=== PATIENT | female | born 1955 ===

== ENCOUNTER 2017-03-01 02:21 | Observation (INO) | payer OTHER ==
[2017-03-01 02:22] VITALS: BMI 24.7
[2017-03-01 03:38] LABS: BASO % 0.3 % (0.0-2.0); EOS # 0.1 K/uL (0.0-0.7); EOS % 1.8 % (0.0-4.0); HEMATOCRIT 39.7 % (34.0-47.0); LYMPH # 2.2 K/uL (1.0-4.3); LYMPH % 37.3 % (20.0-40.0); MEAN CELL VOLUME 90.1 fL (81.0-99.0); MEAN CORPUSCULAR HEMOGLOBIN 29.9 pg (27.0-31.0); MEAN CORPUSCULAR HGB CONC 33.2 g/dL (33.0-37.0); MEAN PLATELET VOLUME 9.8 fL (7.2-11.7); MONO # 0.4 K/uL (0.0-0.8); NRBC % 0.1 % (0.0-2.0); RED CELL DISTRIBUTION WIDTH 13.6 % (11.5-14.5)
[2017-03-01 03:43] LABS: INR 1.1
[2017-03-01 03:45] LABS: CHLORIDE 100 mmol/L (98-107); SODIUM 140 mmol/L (132-148)
[2017-03-01 03:46] LABS: POTASSIUM 4.1 mmol/L (3.6-5.2)
[2017-03-01 03:48] LABS: ALB/GLOB RATIO 1.3 (1.0-2.1); ALKALINE PHOSPHATASE 84 U/L (38-126); ALT/SGPT 36 U/L (9-52); AST/SGOT 26 U/L (14-36); BILIRUBIN,TOTAL 0.1 mg/dL (0.2-1.3); BLOOD UREA NITROGEN 12 mg/dL (7-17); CARBON DIOXIDE 28 mmol/L (22-30); GFR AFRICAN-AMERICAN > 60; GLUCOSE,RANDOM 110 mg/dL (65-105); TOTAL PROTEIN 7.1 g/dL (6.3-8.3)
[2017-03-01 03:49] LABS: CALCIUM 8.4 mg/dl (8.6-10.4)
--- NOTE | 2017-03-01 04:58 | C.PDOC ---
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 Pt also notes tremors/ jerkiness of the left arm. Pt denies weakness of the extremities or numbness, dizziness, chest pain, SOB, visual complaints, nausea, vomiting, diarrhea, fever , chills, or any other complaints. Now symptoms have resulted.Pt is s/p brain surgery for 2 years. Time Seen by Provider: 03/01/17 02:51 Chief Complaint (Nursing): Weakness/Neurological Deficit History Per: Patient History/Exam Limitations: no limitations Onset/Duration Of Symptoms: Hrs Current Symptoms Are (Timing): Still Present Severity: Mild Past Medical History Reviewed: Historical Data, Nursing Documentation, Vital Signs Vital Signs: Last Vital Signs Temp 97.6 F 03/01/17 02:30 Pulse 57 L 03/01/17 06:18 Resp 17 03/01/17 06:18 BP 150/71 03/01/17 06:18 Pulse Ox 97 03/01/17 06:18 - Medical History PMH: HTN, Hypercholesterolemia, Seizures Denies: Chronic Kidney Disease - [facility] Procedures CRANIAL OSTEOPLASTY NEC (03/31/14) NON-INVASIVE MECHANICAL VENTILATION (03/31/14) OTHER BRAIN INCISION (03/31/14) OTHER CRANIOTOMY (03/31/14) PERCUTANEOUS [ENDOSCOPIC] GASTROSTOMY [PEG] (03/31/14) VACCINATION NEC (03/31/14) Family History: States: Unknown Family Hx - Social History Hx Tobacco Use: No Hx Alcohol Use: No Hx Substance Use: No - Immunization History Hx Tetanus Toxoid Vaccination: Yes Hx Influenza Vaccination: Yes Hx Pneumococcal Vaccination: Yes Review Of Systems Constitutional: Positive for: Other (Tingling sensation and numbness of Left facial area). Negative for: Fever, Chills Eyes: Negative for: Vision Change Cardiovascular: Negative for: Chest Pain Respiratory: Negative for: Shortness of Breath Gastrointestinal: Negative for: Nausea, Vomiting, Diarrhea Musculoskeletal: Positive for: Arm Pain (Tremors/jerkiness of left arm) Neurological: Negative for: Weakness (extremities), Numbness (extremities), Dizziness Physical Exam - Physical Exam Appears: Non-toxic, No Acute Distress Skin: Warm, Dry Head: Atraumatic, Normacephalic, No Other (No sign of facial paralysis) Eye(s): bilateral: Normal Inspection, PERRL, EOMI, Other (Able to close eys fully) Oral Mucosa: Moist Neck: Normal Chest: Symmetrical Cardiovascular: Rhythm Regular Respiratory: Normal Breath Sounds, No Rales, No Rhonchi, No Wheezing Gastrointestinal/Abdominal: Normal Exam, Soft, No Tenderness Back: Normal Inspection Extremity: Other (Good strength of the upper and lower extremity) Neurological/Psych: Oriented x3 (Normal for baseline as per son), Normal Speech , Normal Cognition, Normal Cranial Nerves (intact) Gait: Steady ED Course And Treatment - Laboratory Results Result Diagrams: 03/01/17 03:33 03/01/17 03:33 O2 Sat by Pulse Oximetry: 92 (Room air) Pulse Ox Interpretation: Normal - CT Scan/US CT head w/o contrast Other Rad Studies (CT/US): Interpreted By Me, Read By Radiologist CT/US Interpretation: EXAM: CT Head Without Intravenous Contrast. CLINICAL HISTORY: 61 years old, female; Pain; Headache and other: Facial twitching, tremors , S/P brain SX; Prior. surgery. TECHNIQUE: Axial computed tomography images of the head/brain without intravenous contrast. This CT exam. was performed using one or more of the following dose reduction techniques: automated exposure. control, adjustment of the mA and/or kV according to patient size, and/or use of iterative. reconstruction technique. 3D reconstructed images were created and reviewed. COMPARISON: Correlate with report of MRI of 05/01/2016 CT scan report 04/29/16. Images not available for comparison. FINDINGS: Brain: Diffuse encephalomalacia left temporal and parietal lobes. Very tiny focus of hyperintensity. with Hounsfield units of 65 in left parietal region. This appears to be contiguous with an MCA vessel. branches, and may represent intraluminal thrombus, or slow flow. Ventricles: No hydrocephalus. Bones/joints: Left parietal craniectomy defect. Postsurgical change. No acute fracture. Soft tissues: Unremarkable. Sinuses: Unremarkable as visualized. No acute sinusitis. Mastoid air cells: Unremarkable as visualized. No mastoid effusion. IMPRESSION: Status post left middle cranial fossa tumor resection with postoperative encephalomalacia involving. left temporal and parietal lobes. Tiny focus of hyperdensity measuring 3 mm left parietal lobe without. evidence of surrounding edema. May represent old thrombus within main left MCA territory branch or. slow flow within a vessel or other vascular anomaly. A request has been made for prior CT scan of the brain of 04/29/2016 port direct comparison. An addendum will be issued once those images are. obtained. Progress Note: CT head was done on the pt. Reassess and disposition. - Physician Consult Information Time Consulting Physician Contacted: 04:50 Physician Contacted: Jermaine Vidal Outcome Of Conversation: Will admit to his service for observatin Disposition - Disposition Disposition: HOSPITALIZED Disposition Time: 05:45 Condition: STABLE - Clinical Impression Clinical Impression: Weakness of limb, Left facial numbness - Scribe Statement The provider has reviewed the documentation as recorded by the Scribe Chetan montes All medical record entries made by the Scribe were at my direction and personally dictated by me. I have reviewed the chart and agree that the record accurately reflects my personal performance of the history, physical exam, medical decision making, and the department course for this patient. I have also personally directed, reviewed, and agree with the discharge instructions and disposition.
--- NOTE | 2017-03-01 05:40 | CP.PCM.HP ---
<Zhanna Segovia - Last Filed: 03/01/17 07:30> History of Present Illness - History of Present Illness History of Present Illness: CC: "my mouth was twisting to the left" 61 year old female with Hx of HTN, HLD, brain tumor s/p resection presents to the ED with son after face began to twist to the left. She has residual right sided weakness, expressive aphasia, and slurred speech since tumor resection. Patient was sleeping alone at home when she woke up feeling anxious and short of breath and felt "something was wrong". Her left arm was shaking and she felt as though her mouth was twisting. She called her son home from work who brought her in to the hospital. Patient and son reports the twisting of the left face has happened before. Patient and son think symptoms occur usually when patient is hot, and resolve when air conditioning is turned on. She was evaluated in the hospital when it began to happen for the first time shortly after her surgery. Son reports "they thought she was having a stroke, but then it started happening almost every week". She was placed on Keppra at that time. Last time she had an episode like this was 1.5 years ago with no issues since. Patient is very independent at home (she cooks, eats, ambulates without difficulty). Patient also reports numbness and tingling of left arm 3 days ago that persisted for 2 days, but has resolved. Patient admits she never had symptoms when she goes to [facility] (where she was recently) and sometimes stops her BP med. She denies chest pain, SOB, fevers, chills, nausea, vomiting, headaches, palpitations, dysruia, cough, changes in vision, trouble walking. PMHx of HTN, HLD, hx of brain tumor (s/p resection in 2013) with right sided residual. SurgHx: brain tumor resection in 2014 and a filter placed 20 years ago for "thick blood". NKDA Home Meds: Keppra 500mg PO bid, Dilantin 100mg PO TID, Lisinopril 20mg PO daily , ASA 81mg po daily, Pravastatin 40mg po qhs, Vit D2, Vit B12 daily. FHX: mother had heart attack Social Hx: denies tobacco, alcohol, illicit drugs. PMD: Dr. Zoey Present on Admission - Present on Admission Any Indicators Present on Admission: No Review of Systems - Constitutional Constitutional: absent: Chills, Fatigue, Fever - EENT Eyes: absent: Blurred Vision, Change in Vision - Cardiovascular Cardiovascular: absent: Chest Pain, Dyspnea - Respiratory Respiratory: absent: Cough, Dyspnea - Gastrointestinal Gastrointestinal: absent: Abdominal Pain, Constipation, Diarrhea, Nausea, Vomiting - Genitourinary Genitourinary: absent: Difficulty Urinating, Dysuria - Musculoskeletal Musculoskeletal: Numbness, Tingling. absent: Back Pain - Neurological Neurological: Numbness, Tingling, Weakness (at baseline ). absent: Confusion, Convulsions, Dizziness, Headaches, Syncope - Endocrine Endocrine: absent: Fatigue, Palpitations Past Patient History - Infectious Disease Hx of Infectious Diseases: None - Past Medical History & Family History Past Medical History?: Yes - Past Social History Smoking Status: Never Smoked - CARDIAC Hx Hypercholesterolemia: Yes Hx Hypertension: Yes - NEUROLOGICAL Hx Seizures: Yes - HEENT Other/Comment: wears glasses - RENAL Hx Chronic Kidney Disease: No - ENDOCRINE/METABOLIC Hx Endocrine Disorders: No - HEMATOLOGICAL/ONCOLOGICAL Hx Blood Disorders: No - INTEGUMENTARY Hx Dermatological Problems: No - MUSCULOSKELETAL/RHEUMATOLOGICAL Hx Falls: No - GASTROINTESTINAL Hx Nausea: Yes Hx Vomiting: Yes - GENITOURINARY/GYNECOLOGICAL Hx Genitourinary Disorders: No - PSYCHIATRIC Hx Substance Use: No - SURGICAL HISTORY Other/Comment: [place] Filter,Brain tumor surgery - ANESTHESIA Hx Anesthesia: Yes Hx Anesthesia Reactions: No Meds Allergies/Adverse Reactions: Allergies Allergy/AdvReac Type Severity Reaction Status Date / Time No Known Allergies Allergy Verified 03/01/17 02:38 Physical Exam - Constitutional Appears: No Acute Distress - Head Exam Head Exam: NORMAL INSPECTION, NORMOCEPHALIC - Eye Exam Eye Exam: EOMI, Normal appearance, PERRL Pupil Exam: NORMAL ACCOMODATION - ENT Exam ENT Exam: Mucous Membranes Moist - Neck Exam Neck exam: Positive for: Full Rom, Normal Inspection - Respiratory Exam Respiratory Exam: Clear to Auscultation Bilateral, NORMAL BREATHING PATTERN. absent: Rales, Rhonchi, Wheezes - Cardiovascular Exam Cardiovascular Exam: REGULAR RHYTHM, +S1, +S2 - GI/Abdominal Exam GI & Abdominal Exam: Normal Bowel Sounds, Soft. absent: Distended, Tenderness - Extremities Exam Extremities exam: Positive for: full ROM, normal inspection. Negative for: pedal edema - Back Exam Back exam: NORMAL INSPECTION - Neurological Exam Neurological exam: Alert, CN II-XII Intact, Motor Sensory Deficit, Oriented x3 - Expanded Neurological Exam Expanded Neurological exam: Expressive Aphasia, Tremor Patient oriented to: person, place, time Speech: Expressive Aphasia, Slurred Speech Cranial nerves: EOM's Intact: Normal, Facial Palsey w/Forehead Movement: Normal , Facial Palsey w/o Forehead Movement: Normal, Facial Sensation: Normal, Nystagmus: Abnormal Left, Abnormal Right, Tongue Deviation: Normal Ataxia: No Cerebellar Function: Finger to Nose: Abnormal Right, Heel to Guerrero: Normal Upper motor neuron: Babinski Sign: Abnormal Right Neuro motor strength exam: Left Upper Extremity: 5, Right Upper Extremity: 4, Left Lower Extremity: 5, Right Lower Extremity: 4 Coma Scale Eye Opening: SPONTANEOUS Coma Scale Motor Response: OBEYS COMMANDS Coma Scale Verbal: Oriented Coma Scale Total: 15 - Psychiatric Exam Psychiatric exam: Normal Affect, Normal Mood - Skin Skin Exam: Dry, Normal Color, Warm Results - Vital Signs Recent Vital Signs: Last Vital Signs Temp 97.6 F 03/01/17 02:30 Pulse 60 03/01/17 04:13 Resp 16 03/01/17 04:13 BP 142/72 03/01/17 03:53 Pulse Ox 92 L 03/01/17 05:15 - Labs Result Diagrams: 03/01/17 03:33 03/01/17 03:33 Labs: Laboratory Results - last 24 hr 03/01/17 03:33 WBC 6.0 RBC 4.40 Hgb 13.2 Hct 39.7 MCV 90.1 MCH 29.9 MCHC 33.2 RDW 13.6 Plt Count 156 MPV 9.8 Neut % (Auto) 54.6 Lymph % (Auto) 37.3 [place] % (Auto) 6.0 Eos % (Auto) 1.8 Baso % (Auto) 0.3 Neut # 3.3 Lymph # 2.2 [place] # 0.4 Eos # 0.1 Baso # 0.0 PT 12.7 H INR 1.1 APTT 30 Sodium 140 Potassium 4.1 Chloride 100 Carbon Dioxide 28 Anion Gap 17 BUN 12 Creatinine 0.6 L Est GFR ( Amer) > 60 Est GFR (Non-Af Amer) > 60 Random Glucose 110 H Calcium 8.4 L Total Bilirubin 0.1 L AST 26 ALT 36 Alkaline Phosphatase 84 Total Protein 7.1 Albumin 4.1 Globulin 3.1 Albumin/Globulin Ratio 1.3 Assessment & Plan (1) Tremor of left hand Assessment and Plan: Resolved. Patient with hx of seizures (not tonic-clonic) on Dilantin and Keppra. Neuro consult placed- Dr. Castillo- help appreciated. f/u EEG f/u EKG Electrolytes within normal limits. f/u Vit B12, TSH Continue home meds: Keppra 500 mg PO BID Dilantin 100 mg PO TID Head CT: Status post left middle cranial fossa tumor resection with postoperative encephalomalacia involving. left temporal and parietal lobes. Tiny focus of hyperdensity measuring 3 mm left parietal lobe without evidence of surrounding edema. May represent old thrombus within main left MCA territory branch or. slow flow within a vessel or other vascular anomaly. A request has been made for prior CT scan of the brain of 04/29/2016 port direct comparison. f/u official head CT read. Status: Acute (2) Facial asymmetry Assessment and Plan: Resolved. Patient with hx of brain tumor resection and residual expressive aphasia, RIGHT sided weakness and slurred speech. Neuro consult placed- Dr. Castillo- help appreciated. f/u EEG f/u EKG f/u Vit B12, TSH Continue home meds: ASA 81 mg PO daily Crestor 5 mg PO HS (Pravastatin 40 mg PO daily not on formulary) Head CT: Status post left middle cranial fossa tumor resection with postoperative encephalomalacia involving. left temporal and parietal lobes. Tiny focus of hyperdensity measuring 3 mm left parietal lobe without evidence of surrounding edema. May represent old thrombus within main left MCA territory branch or. slow flow within a vessel or other vascular anomaly. A request has been made for prior CT scan of the brain of 04/29/2016 port direct comparison. f/u official head CT read. Status: Acute (3) HLD (hyperlipidemia) Assessment and Plan: Cresto 5 mg PO HS Status: Acute (4) HTN (hypertension) Assessment and Plan: Lisinopril 20 mg PO daily Status: Acute (5) History of brain tumor Assessment and Plan: Pepcid 20 mg PO BID Heparin sc Q8H SCDs Status: Acute (6) History of seizure Status: Acute (7) Prophylactic measure Status: Acute <Jermaine Vidal P - Last Filed: 03/10/17 22:20> Results - Vital Signs Recent Vital Signs: Last Vital Signs Temp 97.4 F L 03/02/17 16:00 Pulse 66 03/02/17 16:00 Resp 20 03/02/17 16:00 BP 128/75 03/02/17 16:00 Pulse Ox 95 03/02/17 16:00 - Labs Result Diagrams: 03/01/17 14:26 03/01/17 14:26 Attending/Attestation - Attestation I have personally seen and examined this patient.: Yes I have fully participated in the care of the patient.: Yes I have reviewed all pertinent clinical information: Yes
[2017-03-01 07:01] VITALS: RESP 20
--- NOTE | 2017-03-01 12:49 | CT ---
PROCEDURE: CT HEAD WITHOUT CONTRAST. HISTORY: Facial twitching, tremors , s/p brain sx COMPARISON: Noncontrast head CT from 04/29/2016 and MRI brain without contrast from 05/01/2016 TECHNIQUE: Axial computed tomography images were obtained through the head/brain without intravenous contrast. Radiation dose: Total exam DLP = 904.01 mGy-cm. This CT exam was performed using one or more of the following dose reduction techniques: Automated exposure control, adjustment of the mA and/or kV according to patient size, and/or use of iterative reconstruction technique. FINDINGS: HEMORRHAGE: No intracranial hemorrhage. BRAIN: There is redemonstration of large cystic encephalomalacia in the left frontal, parietal and temporal lobes with volume loss and ex vacuo dilatation of the left lateral ventricle. There are mild chronic microangiopathic changes. VENTRICLES: There is mild global parenchymal volume loss and proportionate enlargement of the ventricles and cortical sulci. CALVARIUM: Status post large left temporoparietal craniectomy and duraplasty. PARANASAL SINUSES: Predominantly clear. MASTOID AIR CELLS: Predominantly clear. OTHER FINDINGS: None. IMPRESSION: No acute intracranial abnormality. Left frontal, parietal and temporal lobe cystic encephalomalacia and ex vacuo dilatation of the left lateral ventricle.
--- NOTE | 2017-03-01 14:25 | CP.PCM.PN ---
<Juan Javier - Last Filed: 03/01/17 14:22> Subjective - Date & Time of Evaluation Date of Evaluation: 03/01/17 Time of Evaluation: 14:22 - Subjective Subjective: PGY-1 note for medicine service Pt seen and examined at bedside. Pt states that she is back to baseline with no more left sided facial twisting. She reports no increased right sided weakness. Denies any fevers, chills, chest pain, sob, nausea or vomiting. Tolerating diet and having BMs. Objective - Vital Signs/Intake and Output Vital Signs (last 24 hours): Temp Pulse Resp BP Pulse Ox 98.6 F 62 20 153/68 H 96 03/01/17 07:00 03/01/17 07:00 03/01/17 07:00 03/01/17 07:00 03/01/17 07:00 - Medications Medications: Current Medications Aspirin (Ecotrin) 81 mg PO DAILY [facility] Last Admin: 03/01/17 10:01 Dose: 81 mg Cyanocobalamin (Vitamin B12 1000 Mcg Tab) 1,000 mcg PO DAILY [facility] Last Admin: 03/01/17 10:01 Dose: 1,000 mcg Famotidine (Pepcid) 20 mg PO BID [facility] Last Admin: 03/01/17 10:01 Dose: 20 mg Heparin Sodium (Porcine) (Heparin) 5,000 units SC Q8 [facility] Last Admin: 03/01/17 13:39 Dose: 5,000 units Levetiracetam (Keppra) 500 mg PO BID [facility] Last Admin: 03/01/17 10:01 Dose: 500 mg Lisinopril (Zestril) 20 mg PO DAILY [facility] Last Admin: 03/01/17 10:01 Dose: 20 mg Phenytoin Sodium (Dilantin) 100 mg PO TID [facility] Last Admin: 03/01/17 13:39 Dose: 100 mg Rosuvastatin Calcium (Crestor) 5 mg PO HS [facility] - Labs Labs: PT 12.7 SECONDS (9.7-12.2) H 03/01/17 03:33 INR 1.1 03/01/17 03:33 APTT 30 SECONDS (21-34) 03/01/17 03:33 - Constitutional Appears: Non-toxic, No Acute Distress - Eye Exam Eye Exam: Normal appearance - Respiratory Exam Respiratory Exam: Clear to Ausculation Bilateral, NORMAL BREATHING PATTERN - Cardiovascular Exam Cardiovascular Exam: +S1, +S2 - GI/Abdominal Exam GI & Abdominal Exam: Soft, Normal Bowel Sounds - Neurological Exam Neurological Exam: Alert, Awake, CN II-XII Intact, Normal Gait, Oriented x3 Neuro motor strength exam: Left Upper Extremity: 5, Right Upper Extremity: 4 ( chronic), Left Lower Extremity: 5, Right Lower Extremity: 4 (chronic) Additional comments: No acute focal neurological deficits - Skin Skin Exam: Dry, Warm Assessment and Plan - Assessment and Plan (Free Text) Assessment: Tremor of left hand Resolved. Patient with hx of seizures (not tonic-clonic) on Dilantin and Keppra. Neuro consult placed- Dr. Castillo- help appreciated. f/u EEG EKG - NSR at 64 with no signs of ischemia Electrolytes within normal limits. f/u Vit B12, TSH Continue home meds: Keppra 500 mg PO BID Dilantin 100 mg PO TID Head CT: No acute intracranial abnormality. Left frontal, parietal and temporal lobe cystic encephalomalacia and ex vacuo dilatation of the left lateral ventricle. Facial asymmetry Resolved. Patient with hx of brain tumor resection and residual expressive aphasia, RIGHT sided weakness and slurred speech. Neuro consult placed- Dr. Castillo- help appreciated. f/u EEG EKG - NSR at 64 with no signs of ischemia f/u Vit B12, TSH f/u Dilantin level Continue home meds: ASA 81 mg PO daily Crestor 5 mg PO HS (Pravastatin 40 mg PO daily not on formulary) Head CT: No acute intracranial abnormality. Left frontal, parietal and temporal lobe cystic encephalomalacia and ex vacuo dilatation of the left lateral ventricle. HLD (hyperlipidemia) Crestor 5 mg PO HS HTN (hypertension) Lisinopril 20 mg PO daily History of brain tumor Pepcid 20 mg PO BID Heparin sc Q8H SCDs History of seizure Continue home meds: Keppra 500 mg PO BID Dilantin 100 mg PO TID Prophylactic measure Pepcid Heparin SC Neuro checks <Mcdaniels,Peter H - Last Filed: 03/01/17 19:19> Objective - Vital Signs/Intake and Output Vital Signs (last 24 hours): Temp Pulse Resp BP Pulse Ox 98.6 F 62 20 153/68 H 96 03/01/17 07:00 03/01/17 16:19 03/01/17 07:00 03/01/17 07:00 03/01/17 07:00 - Medications Medications: Current Medications Aspirin (Ecotrin) 81 mg PO DAILY [facility] Last Admin: 03/01/17 10:01 Dose: 81 mg Cyanocobalamin (Vitamin B12 1000 Mcg Tab) 1,000 mcg PO DAILY [facility] Last Admin: 03/01/17 10:01 Dose: 1,000 mcg Famotidine (Pepcid) 20 mg PO BID [facility] Last Admin: 03/01/17 18:07 Dose: 20 mg Heparin Sodium (Porcine) (Heparin) 5,000 units SC Q8 [facility] Last Admin: 03/01/17 13:39 Dose: 5,000 units Levetiracetam (Keppra) 500 mg PO BID [facility] Last Admin: 03/01/17 18:07 Dose: 500 mg Lisinopril (Zestril) 20 mg PO DAILY [facility] Last Admin: 03/01/17 10:01 Dose: 20 mg Phenytoin Sodium (Dilantin) 100 mg PO TID [facility] Last Admin: 03/01/17 18:07 Dose: 100 mg Rosuvastatin Calcium (Crestor) 5 mg PO HS [facility] - Labs Labs: 03/01/17 14:26 03/01/17 14:26 PT 12.7 SECONDS (9.7-12.2) H 03/01/17 03:33 INR 1.1 03/01/17 03:33 APTT 30 SECONDS (21-34) 03/01/17 03:33 Attending/Attestation - Attestation I have personally seen and examined this patient.: Yes I have fully participated in the care of the patient.: Yes I have reviewed all pertinent clinical information, including history, physical exam and plan: Yes Notes (Text): 03/01/17 19:14 Medical Attending: Patient was seen and examined by me. Agree with the above note by the resident. We saw patient together. As mentioned previously there is a history of brain tumor that required removal in 2013 and so there is a baseline R arm and R leg weakness. By the time we came and saw patient it appears that the facial movment had stopped and she had returned to baseline. Yakov Mcdaniels 03/01/17 19:18
[2017-03-01 14:37] LABS: BASO % 0.5 % (0.0-2.0); EOS # 0.1 K/uL (0.0-0.7); EOS % 1.3 % (0.0-4.0); LYMPH # 2.1 K/uL (1.0-4.3); LYMPH % 29.7 % (20.0-40.0); MEAN CELL VOLUME 89.8 fL (81.0-99.0); MEAN CORPUSCULAR HEMOGLOBIN 30.5 pg (27.0-31.0); MEAN PLATELET VOLUME 9.6 fL (7.2-11.7); MONO # 0.4 K/uL (0.0-0.8); MONO % 5.9 % (0.0-10.0); NRBC % 0.1 % (0.0-2.0); RED CELL DISTRIBUTION WIDTH 13.6 % (11.5-14.5); WHITE BLOOD COUNT 7.1 K/uL (4.8-10.8)
[2017-03-01 14:59] LABS: CHLORIDE 99 mmol/L (98-107); POTASSIUM 4.4 mmol/L (3.6-5.2); SODIUM 145 mmol/L (132-148)
[2017-03-01 15:01] LABS: BILIRUBIN,TOTAL 0.6 mg/dL (0.2-1.3); GFR AFRICAN-AMERICAN > 60
[2017-03-01 15:02] LABS: ALB/GLOB RATIO 1.3 (1.0-2.1); ALKALINE PHOSPHATASE 80 U/L (38-126); ALT/SGPT 39 U/L (9-52); AST/SGOT 27 U/L (14-36); BLOOD UREA NITROGEN 11 mg/dL (7-17); CARBON DIOXIDE 29 mmol/L (22-30); GLUCOSE,RANDOM 106 mg/dL (65-105); PHOSPHOROUS 3.7 mg/dL (2.5-4.5); TOTAL PROTEIN 7.8 g/dL (6.3-8.3)
[2017-03-01 15:03] LABS: CALCIUM 8.8 mg/dl (8.6-10.4)
[2017-03-01 15:32] LABS: THYROID STIMULATING HORMONE 3.17 mIU/L (0.46-4.68)
--- NOTE | 2017-03-02 10:54 | CP.PCM.PN ---
Subjective - Date & Time of Evaluation Date of Evaluation: 03/02/17 Time of Evaluation: 07:15 - Subjective Subjective: PGY-[address] Mcdaniels: Patient seen and examined at bedside this morning. She states that she is feels better and is no longer experiencing left-sided facial drooping and twisting. Her appetite is good and she is having regular BMs. She denies increased right- sided weakness, nausea/vomiting, dizziness, change in vision, chest pain, palpitations, sob, abdominal pain, and swelling. Objective - Vital Signs/Intake and Output Vital Signs (last 24 hours): Temp Pulse Resp BP Pulse Ox 97.7 F 60 20 104/59 L 96 03/02/17 08:13 03/02/17 08:13 03/02/17 08:13 03/02/17 08:13 03/02/17 08:13 Intake and Output: 03/02/17 03/02/17 06:59 18:59 Intake Total 300 Balance 300 - Medications Medications: Current Medications Aspirin (Ecotrin) 81 mg PO DAILY [facility] Last Admin: 03/01/17 10:01 Dose: 81 mg Cyanocobalamin (Vitamin B12 1000 Mcg Tab) 1,000 mcg PO DAILY [facility] Last Admin: 03/01/17 10:01 Dose: 1,000 mcg Famotidine (Pepcid) 20 mg PO BID [facility] Last Admin: 03/01/17 18:07 Dose: 20 mg Heparin Sodium (Porcine) (Heparin) 5,000 units SC Q8 [facility] Last Admin: 03/02/17 06:51 Dose: 5,000 units Levetiracetam (Keppra) 500 mg PO BID [facility] Last Admin: 03/01/17 18:07 Dose: 500 mg Lisinopril (Zestril) 20 mg PO DAILY [facility] Last Admin: 03/01/17 10:01 Dose: 20 mg Phenytoin Sodium (Dilantin) 100 mg PO TID [facility] Last Admin: 03/01/17 18:07 Dose: 100 mg Rosuvastatin Calcium (Crestor) 5 mg PO HS [facility] Last Admin: 03/01/17 21:36 Dose: 5 mg - Labs Labs: 03/01/17 14:26 03/01/17 14:26 PT 12.7 SECONDS (9.7-12.2) H 03/01/17 03:33 INR 1.1 03/01/17 03:33 APTT 30 SECONDS (21-34) 03/01/17 03:33
--- NOTE | 2017-03-02 16:23 | CP.PCM.DIS ---
Provider - Provider Date of Admission: 03/01/17 05:42 Attending physician: Jermaine Vidal MD Primary care physician: Dr. Greer Consults: Dr. Castillo - neurology Time Spent in preparation of Discharge (in minutes): 35 Diagnosis - Discharge Diagnosis (1) Tremor of left hand Status: Acute Comment: will need futher outpatient workup. f/u neurology (2) Seizure Status: Acute Comment: f/u primary care and neurology. Keppra 750 mg PO BID Hospital Course - Lab Results Lab Results: Most Recent Lab Values WBC 7.1 K/uL (4.8-10.8) 03/01/17 14:26 RBC 4.68 Mil/uL (3.80-5.20) 03/01/17 14:26 Hgb 14.3 g/dL (11.0-16.0) 03/01/17 14:26 Hct 42.0 % (34.0-47.0) 03/01/17 14:26 MCV 89.8 fL (81.0-99.0) 03/01/17 14:26 MCH 30.5 pg (27.0-31.0) 03/01/17 14:26 MCHC 34.0 g/dL (33.0-37.0) 03/01/17 14:26 RDW 13.6 % (11.5-14.5) 03/01/17 14:26 Plt Count 169 K/uL (130-400) 03/01/17 14:26 MPV 9.6 fL (7.2-11.7) 03/01/17 14:26 Neut % (Auto) 62.6 % (50.0-75.0) 03/01/17 14:26 Lymph % (Auto) 29.7 % (20.0-40.0) 03/01/17 14:26 [place] % (Auto) 5.9 % (0.0-10.0) 03/01/17 14:26 Eos % (Auto) 1.3 % (0.0-4.0) 03/01/17 14:26 Baso % (Auto) 0.5 % (0.0-2.0) 03/01/17 14:26 Neut # 4.4 K/uL (1.8-7.0) 03/01/17 14:26 Lymph # 2.1 K/uL (1.0-4.3) 03/01/17 14:26 [place] # 0.4 K/uL (0.0-0.8) 03/01/17 14:26 Eos # 0.1 K/uL (0.0-0.7) 03/01/17 14:26 Baso # 0.0 K/uL (0.0-0.2) 03/01/17 14:26 PT 12.7 SECONDS (9.7-12.2) H 03/01/17 03:33 INR 1.1 03/01/17 03:33 APTT 30 SECONDS (21-34) 03/01/17 03:33 Sodium 145 mmol/L (132-148) 03/01/17 14:26 Potassium 4.4 mmol/L (3.6-5.2) 03/01/17 14:26 Chloride 99 mmol/L (98-107) 03/01/17 14:26 Carbon Dioxide 29 mmol/L (22-30) 03/01/17 14:26 Anion Gap 21 (10-20) H 03/01/17 14:26 BUN 11 mg/dL (7-17) 03/01/17 14:26 Creatinine 0.7 MG/DL (0.7-1.2) 03/01/17 14:26 Est GFR ( Amer) > 60 03/01/17 14:26 Est GFR (Non-Af Amer) > 60 03/01/17 14:26 Random Glucose 106 mg/dL (65-105) H 03/01/17 14:26 Calcium 8.8 mg/dl (8.6-10.4) 03/01/17 14:26 Phosphorus 3.7 mg/dL (2.5-4.5) 03/01/17 14:26 Magnesium 2.0 mg/dL (1.6-2.3) 03/01/17 14:26 Total Bilirubin 0.6 mg/dL (0.2-1.3) 03/01/17 14:26 AST 27 U/L (14-36) 03/01/17 14:26 ALT 39 U/L (9-52) 03/01/17 14:26 Alkaline Phosphatase 80 U/L (38-126) 03/01/17 14:26 Total Protein 7.8 g/dL (6.3-8.3) 03/01/17 14:26 Albumin 4.4 g/dL (3.5-5.0) 03/01/17 14:26 Globulin 3.4 gm/dL (2.2-3.9) 03/01/17 14:26 Albumin/Globulin Ratio 1.3 (1.0-2.1) 03/01/17 14:26 Vitamin B12 > 1000 pg/mL (239-931) H 03/01/17 14:26 TSH 3rd Generation 3.17 mIU/L (0.46-4.68) 03/01/17 14:26 Phenytoin 26.6 ug/mL (10-20) H 03/01/17 14:26 - Hospital Course Hospital Course: On admission: 61 year old female with Hx of HTN, HLD, brain tumor s/p resection presents to the ED with son after face began to twist to the left. She has residual right sided weakness, expressive aphasia, and slurred speech since tumor resection. Patient was sleeping alone at home when she woke up feeling anxious and short of breath and felt "something was wrong". Her left arm was shaking and she felt as though her mouth was twisting. She called her son home from work who brought her in to the hospital. Patient and son reports the twisting of the left face has happened before. Patient and son think symptoms occur usually when patient is hot, and resolve when air conditioning is turned on. She was evaluated in the hospital when it began to happen for the first time shortly after her surgery. Son reports "they thought she was having a stroke, but then it started happening almost every week". She was placed on Keppra at that time. Last time she had an episode like this was 1.5 years ago with no issues since. Patient is very independent at home (she cooks, eats, ambulates without difficulty). Patient also reports numbness and tingling of left arm 3 days ago that persisted for 2 days, but has resolved. Patient admits she never had symptoms when she goes to [facility] (where she was recently) and sometimes stops her BP med. She denies chest pain, SOB, fevers, chills, nausea, vomiting, headaches, palpitations, dysruia, cough, changes in vision, trouble walking. During Hospital Stay: Patient with hisotry of brain tumor removal results in residual weakness. Patient with a tremor in the L hand. She aslo has some facial asymmetry. Head CT: No acute intracranial abnormality. Left frontal, parietal and temporal lobe cystic encephalomalacia and ex vacuo dilatation of the left lateral ventricle. "Face twitching" had resolved. Patient will need to follow up with Neurology (Dr. Castillo) outpatient for further workup of this tremor. Home seizure meds were continued but changed per Neurology to Kepprea 750mg PO BID. Dialntin was discontinued. Her level was high (26). She was given Lisinopril for BP contol. Patient was also given ASA and crestor. Patient stable for discharge home per Neurology. Patient is to follow up with her primary care DR. Greer within one week of discharge for post hospital care. Patient is also to follow up with her neurologist or Dr. Castillo within one week of discharge. She is to continue her home medications but stop taking the phenytoin extended release. She is instead to take one medication for seizures: Keppra 750 mg by mouth once a day. This is a change in her previous medications. She was instructed to return to the emergency room if her symptoms return. All instructions and changes in her medications were discussed with her and her son and they agreed. Discharge Exam - Head Exam Head Exam: NORMAL INSPECTION, NORMOCEPHALIC - Eye Exam Eye Exam: EOMI, Normal appearance, PERRL Pupil Exam: NORMAL ACCOMODATION - ENT Exam ENT Exam: Mucous Membranes Moist - Respiratory Exam Respiratory Exam: NORMAL BREATHING PATTERN. absent: Accessory Muscle Use, Chest Wall Tenderness, Rales, Rhonchi, Wheezes, Respiratory Distress - Cardiovascular Exam Cardiovascular Exam: REGULAR RHYTHM, +S1, +S2 - GI/Abdominal Exam GI & Abdominal Exam: Normal Bowel Sounds, Soft. absent: Distended, Firm, Guarding - Extremities Exam Extremities exam: pedal edema Additional comments: tremor L hand. R residual weakness. gait abnormal but baseline for patient. - Back Exam Back exam: NORMAL INSPECTION. absent: CVA tenderness (L), CVA tenderness (R), paraspinal tenderness - Neurological Exam Neurological exam: Alert, Oriented x3 - Psychiatric Exam Psychiatric exam: Normal Affect, Normal Mood - Skin Skin Exam: Dry, Intact, Normal Color, Warm Discharge Plan - Discharge Medications Prescriptions: Aspirin 81 mg PO DAILY #30 RX: levETIRAcetam [Keppra] 750 mg PO BID #60 tab RX: Lisinopril [Zestril] 20 mg PO DAILY #30 tab - Follow Up Plan Condition: STABLE Disposition: HOME/ ROUTINE Instructions: Lisinopril (By mouth), Aspirin (By mouth), Levetiracetam (By mouth), Recurrent Seizures in Adults (DC) Additional Instructions: Patient stable for discharge home per Neurology. Patient is to follow up with her primary care DR. Greer within one week of discharge for post hospital care. Patient is also to follow up with her neurologist or Dr. Castillo within one week of discharge. She is to continue her home medications but stop taking the phenytoin extended release. She is instead to take one medication for seizures: Keppra 750 mg by mouth once a day. This is a change in her previous medications. She was instructed to return to the emergency room if her symptoms return. All instructions and changes in her medications were discussed with her and her son and they agreed. Referrals: Agustín Castillo MD [Staff Provider] -
[2017-03-02 16:51] VITALS: BP 128/75; PULSE 66; TEMP 97.4; O2SAT 95
--- NOTE | 2017-03-02 18:51 | CP.PCM.PN ---
Subjective - Date & Time of Evaluation Date of Evaluation: 03/02/17 Time of Evaluation: 18:43 - Subjective Subjective: Condition of the Parient was discussed with Resident Chel Fraser. Patient is seizures free and is receiving 2 medicine for seizure prophylaxis. She has a mild intoxication of Dilantin and the level is above 26. We will keep her Keppra after increasing it to 750 mg Q 12 hours and D/C Keppra 500 mg Q 12 hrs. Dilantin is D/C. Patient will be seen as an out patient in Follow Up visits. Dr Chel Fraser wrote by mistake that the Keppra dose is 750 mg QD while the prescription the patient received is Keppra 750 mg BID. She is given also Rectal Diastat 10 mg TID PRN Seizures. Objective - Vital Signs/Intake and Output Vital Signs (last 24 hours): Temp Pulse Resp BP Pulse Ox 97.4 F L 66 20 128/75 95 03/02/17 16:00 03/02/17 16:00 03/02/17 16:00 03/02/17 16:00 03/02/17 16:00 Intake and Output: 03/02/17 03/02/17 06:59 18:59 Intake Total 300 540 Balance 300 540 - Medications Medications: Current Medications Aspirin (Ecotrin) 81 mg PO DAILY [facility] Last Admin: 03/02/17 11:28 Dose: 81 mg Cyanocobalamin (Vitamin B12 1000 Mcg Tab) 1,000 mcg PO DAILY [facility] Last Admin: 03/02/17 11:27 Dose: 1,000 mcg Famotidine (Pepcid) 20 mg PO BID [facility] Last Admin: 03/02/17 17:27 Dose: 20 mg Heparin Sodium (Porcine) (Heparin) 5,000 units SC Q8 [facility] Last Admin: 03/02/17 14:35 Dose: 5,000 units Levetiracetam (Keppra) 750 mg PO BID [facility] Last Admin: 03/02/17 17:27 Dose: 750 mg Lisinopril (Zestril) 20 mg PO DAILY [facility] Last Admin: 03/02/17 11:28 Dose: 20 mg Rosuvastatin Calcium (Crestor) 5 mg PO HS [facility] Last Admin: 03/01/17 21:36 Dose: 5 mg - Labs Labs: 03/01/17 14:26 03/01/17 14:26 PT 12.7 SECONDS (9.7-12.2) H 03/01/17 03:33 INR 1.1 03/01/17 03:33 APTT 30 SECONDS (21-34) 03/01/17 03:33 Assessment and Plan (1) Facial asymmetry Status: Acute (2) History of brain tumor Status: Acute (3) History of seizure Assessment & Plan: on Keppra 750 mg Q 12 hours Status: Acute (4) Tremor of left hand Assessment & Plan: She will need further assessment to R/O extrapyramidal lesion causing the tremor. Seizures look to be controlled. Status: Acute (5) Weakness of limb Status: Acute
--- NOTE | 2017-03-05 12:33 | CARD ---
APPROVED REPORT EKG Measurement Heart [id number] <Conclusion> Normal sinus rhythm Minimal voltage criteria for LVH, may be normal variant Borderline ECG
--- NOTE | 2017-03-10 07:20 | EEG ---
DATE: 03/01/2017 The record was obtained for history of left facial numbness, left upper extremity numbness, history of seizures. The record was obtained while the patient was awake and drowsy. The record was symmetrically equal on both sides with a velocity of 8 cycles per second. The waves are fairly organized, fairly formed with a posterior distribution, moderate in amplitude, reactive to eye opening by attenuation. There were some cerebral dysrhythmia that were seen in the record in the area of left temporal occipital, and left temporal frontal, and left posterior occipital, and there were significant slowing of the waves and increase in the amplitude of the waves. The record showed periods of drowsiness during which attenuation and slowing of the record were seen, and theta waves were seen. There were no periods of sleep that were documented, and the record did not show any changes with photic stimulation. The hyperventilation was omitted. There were eye movement artefacts, electrode artefacts and muscle movement artefacts. In sum, this is an abnormal record that might be significant for seizure disorder or for encephalopathy, as it showed cerebral dysrhythmia on the left side of the Brain. Agustín Castillo MD cc: [id number] TT: 03/10/2017 07:19:41 Confirmation # [id number] Dictation # [id number] MTDD
== END 2017-03-02 17:50 | disposition home or self-care (01) ==
LOC: C.ER 02:21 → C.3T 05:42
PROVIDERS: ADMIT Internal Medicine; ATTEND Internal Medicine
DX: R25.1 Tremor, unspecified (principal); G40.909 Epilepsy, unspecified, not intractable, without status epilepticus; I10 Essential (primary) hypertension; E78.5 Hyperlipidemia, unspecified; G81.91 Hemiplegia, unspecified affecting right dominant side; R47.01 Aphasia; Z86.69 Personal history of other diseases of the nervous system and sense organs; Z79.82 Long term (current) use of aspirin; G93.89 Other specified disorders of brain; Z79.899 Other long term (current) drug therapy
CPT/HCPCS: 70450; 80053; 80185; 82607; 83735; 84100; 84443; 85025; 85610; 85730; 93005; 95812; 97116; 97162; 99285; G0378; G8978; G8979; J1644

== ENCOUNTER 2018-11-16 13:09 | Emergency (ER) | payer OTHER ==
[2018-11-16 13:09] VITALS: BMI 24.7
--- NOTE | 2018-11-16 14:08 | C.PDOC ---
History Of Present Illness 63 y/o female with a PMHx of hypertension, brain tumor, s/p craniotomy, presents today complaining of dizziness and frequent falls. Son states she fell 2 weeks ago, again yesterday, and again this morning. Patient is now complaining of left-sided pain. Denies any LOC, head trauma, or other injury. She denies any nausea, vomiting, photophobia, visual loss, chest pain, abdominal pain, or fever. Time Seen by Provider: 11/16/18 13:41 Chief Complaint (Nursing): Dizziness/Lightheaded History Per: Patient History/Exam Limitations: no limitations Onset/Duration Of Symptoms: Days Current Symptoms Are (Timing): Still Present Past Medical History Reviewed: Historical Data, Nursing Documentation, Vital Signs Vital Signs: Last Vital Signs Temp 97.3 F L 11/16/18 13:18 Pulse 72 11/16/18 13:18 Resp 20 11/16/18 13:18 BP 133/80 11/16/18 13:18 Pulse Ox 100 11/16/18 13:18 - Medical History PMH: HTN, Hypercholesterolemia, Seizures Denies: Chronic Kidney Disease - [facility] Procedures CRANIAL OSTEOPLASTY NEC (03/31/14) NON-INVASIVE MECHANICAL VENTILATION (03/31/14) OTHER BRAIN INCISION (03/31/14) OTHER CRANIOTOMY (03/31/14) PERCUTANEOUS [ENDOSCOPIC] GASTROSTOMY [PEG] (03/31/14) VACCINATION NEC (03/31/14) Family History: States: Unknown Family Hx - Social History Hx Tobacco Use: No Hx Alcohol Use: No Hx Substance Use: No - Immunization History Hx Tetanus Toxoid Vaccination: Yes Hx Influenza Vaccination: Yes Hx Pneumococcal Vaccination: Yes Review Of Systems Except As Marked, All Systems Reviewed And Found Negative. Constitutional: Negative for: Fever Cardiovascular: Negative for: Chest Pain Respiratory: Negative for: Shortness of Breath Gastrointestinal: Negative for: Abdominal Pain Neurological: Positive for: Dizziness, Other (Frequent falls). Negative for: Numbness, Change in Speech, Confusion, Altered Mental Status, Headache Physical Exam - Physical Exam Appears: Non-toxic, No Acute Distress Skin: Normal Color, Warm, Dry Head: Atraumatic, Normacephalic Eye(s): bilateral: Normal Inspection, PERRL, Other (No nystagmus) Oral Mucosa: Moist Neck: Normal ROM, Supple Chest: Symmetrical Cardiovascular: Rhythm Regular, No Murmur, No JVD Respiratory: Normal Breath Sounds, No Rales, No Rhonchi, No Wheezing Gastrointestinal/Abdominal: Soft, No Tenderness, No Distention Back: No CVA Tenderness, No Vertebral Tenderness Extremity: Bilateral: Atraumatic, Normal Color And Temperature Neurological/Psych: Normal Speech, Normal Cranial Nerves (2-12 grossly intact), Normal Motor (5/5 strength throughout), Normal Sensation, Other (No pronator drift) ED Course And Treatment - Laboratory Results Result Diagrams: 11/16/18 14:18 11/16/18 14:18 O2 Sat by Pulse Oximetry: 100 (RA) Pulse Ox Interpretation: Normal Medical Decision Making Medical Decision Making: Impression: Dizziness, s/p brain tumor Plan: - Labs - Chest x-ray - Meclizine 25 mg PO - CT Head EKG: NSR 65 bpm left axis dev CXR reviewed by me, no acute findings, no infiltrates, no pneumothorax. CT Head: FINDINGS: HEMORRHAGE: No intracranial hemorrhage. BRAIN: No mass effect or edema. Marked focal encephalomalacia in the left f rontotemporoparietal region, at the site of prior surgery. This is unchanged in appearance compared to the prior examination. . No evidence of acute infarct. VENTRICLES: Mild ex vacuo dilatation of left lateral ventricle, unchanged. No midline shift. CALVARIUM: Status post left fronto temporoparietal craniectomy and duraplasty. PARANASAL SINUSES: Unremarkable as visualized. No significant inflammatory changes. MASTOID AIR CELLS: Unremarkable as visualized. No inflammatory changes. OTHER FINDINGS: None. IMPRESSION: Postoperative encephalomalacia left frontotemporoparietal, with overlying craniectomy and duraplasty. No acute abnormality. 15:30 On reevaluation, patient reports improvement and feels comfortable going home. Disposition Counseled Patient/Family Regarding: Studies Performed, Diagnosis, Need For Followup, Rx Given - Disposition Referrals: [facility] at [facility] [place] [Outside] [facility] at [facility] [Outside] [facility] [place] [Outside] Disposition: HOME/ ROUTINE Disposition Time: 15:35 Condition: GOOD Additional Instructions: Please take meclizine as directed and follow up with your pcp or medicine clinic in a few days. Prescriptions: Meclizine [Meclizine*] 25 mg PO Q8 #15 tab Instructions: Preventing Falls, Dizziness, Nonvertigo, (DC) Forms: [facility] (Jordanian) - Clinical Impression Clinical Impression: Dizziness - Scribe Statement The provider has reviewed the documentation as recorded by the [place] Provider Attestation: All medical record entries made by the Asimibmorgan were at my direction and personally dictated by me. I have reviewed the chart and agree that the record accurately reflects my personal performance of the history, physical exam, medical decision making, and the department course for this patient. I have also personally directed, reviewed, and agree with the discharge instructions and disposition.
[2018-11-16 14:24] LABS: BASO % 0.7 % (0.0-2.0); EOS # 0.1 K/uL (0.0-0.7); EOS % 1.2 % (0.0-4.0); HEMOGLOBIN 13.7 g/dL (11.0-16.0); LYMPH # 1.8 K/uL (1.0-4.3); LYMPH % 26.8 % (20.0-40.0); MEAN CELL VOLUME 90.5 fL (81.0-99.0); MEAN CORPUSCULAR HEMOGLOBIN 29.9 pg (27.0-31.0); MEAN CORPUSCULAR HGB CONC 33.1 g/dL (33.0-37.0); MEAN PLATELET VOLUME 9.1 fL (7.2-11.7); MONO # 0.4 K/uL (0.0-0.8); MONO % 5.8 % (0.0-10.0); NEUT # 4.3 K/uL (1.8-7.0); NEUT % 65.5 % (50.0-75.0); RBC 4.59 Mil/uL (3.80-5.20); RED CELL DISTRIBUTION WIDTH 13.6 % (11.5-14.5); WHITE BLOOD COUNT 6.6 K/uL (4.8-10.8)
[2018-11-16 14:33] LABS: INR 1.2; PROTHROMBIN TIME 12.8 SECONDS (9.7-12.2)
[2018-11-16 14:36] LABS: ALB/GLOB RATIO 1.2 (1.0-2.1); ALBUMIN 4.4 g/dL (3.5-5.0); ALT/SGPT 31 U/L (9-52); AST/SGOT 22 U/L (14-36); BLOOD UREA NITROGEN 13 mg/dL (7-17); GFR NON-AFRICAN AMERICAN > 60
--- NOTE | 2018-11-16 15:00 | CT ---
Date of service: 11/16/2018 PROCEDURE: CT HEAD WITHOUT CONTRAST. HISTORY: dizziness s/p brain tumor COMPARISON: 03/01/2017 TECHNIQUE: Axial computed tomography images were obtained through the head/brain without intravenous contrast. Radiation dose: Total exam DLP = 865.98 mGy-cm. This CT exam was performed using one or more of the following dose reduction techniques: Automated exposure control, adjustment of the mA and/or kV according to patient size, and/or use of iterative reconstruction technique. FINDINGS: HEMORRHAGE: No intracranial hemorrhage. BRAIN: No mass effect or edema. Marked focal encephalomalacia in the left frontotemporoparietal region, at the site of prior surgery. This is unchanged in appearance compared to the prior examination. . No evidence of acute infarct. VENTRICLES: Mild ex vacuo dilatation of left lateral ventricle, unchanged. No midline shift. CALVARIUM: Status post left fronto temporoparietal craniectomy and duraplasty. PARANASAL SINUSES: Unremarkable as visualized. No significant inflammatory changes. MASTOID AIR CELLS: Unremarkable as visualized. No inflammatory changes. OTHER FINDINGS: None. IMPRESSION: Postoperative encephalomalacia left frontotemporoparietal, with overlying craniectomy and duraplasty. No acute abnormality.
[2018-11-16 16:01] VITALS: BP 126/77; PULSE 70; RESP 16; TEMP 97.9
--- NOTE | 2018-11-16 16:22 | RAD ---
Date of service: 11/16/2018 PROCEDURE: CHEST RADIOGRAPH, 1 VIEW HISTORY: r/o infiltrate COMPARISON: 06/25/2027 FINDINGS: LUNGS: Clear. PLEURA: No pneumothorax or pleural fluid seen. CARDIOVASCULAR: No aortic atherosclerotic calcification present. Normal. OSSEOUS STRUCTURES: No significant abnormalities. VISUALIZED UPPER ABDOMEN: Normal. OTHER FINDINGS: None. IMPRESSION: No active disease.
[2018-11-18 20:13] VITALS: O2SAT 100
--- NOTE | 2018-11-18 20:53 | CARD ---
APPROVED REPORT Date of service: 11/16/2018 EKG Measurement Heart [id number] <Conclusion> Normal sinus rhythm Moderate voltage criteria for LVH, may be normal variant Nonspecific T wave abnormality Abnormal ECG
== END 2018-11-16 16:01 | disposition home or self-care (01) ==
LOC: C.ER 13:09
DX: R42 Dizziness and giddiness (principal); E78.00 Pure hypercholesterolemia, unspecified; I10 Essential (primary) hypertension

== ENCOUNTER 2019-02-07 16:37 | Inpatient (IN) | payer OTHER ==
[2019-02-07 16:38] VITALS: BMI 24.7
[2019-02-07 19:04] LABS: BASO # 0.1 K/uL (0.0-0.2); BASO % 0.4 % (0.0-2.0); EOS % 0.2 % (0.0-4.0); HEMOGLOBIN 13.4 g/dL (11.0-16.0); LYMPH % 14.8 % (20.0-40.0); MEAN CELL VOLUME 91.3 fL (81.0-99.0); MEAN CORPUSCULAR HEMOGLOBIN 30.1 pg (27.0-31.0); MEAN CORPUSCULAR HGB CONC 32.9 g/dL (33.0-37.0); MEAN PLATELET VOLUME 9.8 fL (7.2-11.7); MONO # 0.5 K/uL (0.0-0.8); MONO % 3.9 % (0.0-10.0); NEUT # 10.7 K/uL (1.8-7.0); NEUT % 80.7 % (50.0-75.0); RBC 4.46 Mil/uL (3.80-5.20); RED CELL DISTRIBUTION WIDTH 13.3 % (11.5-14.5)
[2019-02-07 19:07] LABS: WHITE BLOOD COUNT 13.2 K/uL (4.8-10.8)
[2019-02-07 19:17] LABS: ALB/GLOB RATIO 1.4 (1.0-2.1); ALBUMIN 4.3 g/dL (3.5-5.0); ALT/SGPT 25 U/L (9-52); AST/SGOT 30 U/L (14-36); BLOOD UREA NITROGEN 10 mg/dL (7-17); CALCIUM 9.3 mg/dl (8.6-10.4); GFR NON-AFRICAN AMERICAN > 60; LIPASE 32 U/L (23-300)
[2019-02-07 19:21] LABS: SQUAMOUS EPITHIAL 12 /hpf (0-5); URINE BACTERIA OCC (<OCC); URINE BILIRUBIN NEGATIVE (NEGATIVE); URINE BLOOD NEGATIVE (NEGATIVE); URINE CLARITY Hazy (Clear); URINE COLOR Yellow (YELLOW); URINE GLUCOSE (UA) NORMAL (Normal); URINE LEUKOCYTE ESTERASE TRACE Leu/uL (Negative); URINE PROTEIN NEGATIVE (NEGATIVE); URINE UROBILINOGEN NORMAL mg/dL (0.2-1.0)
[2019-02-07] MEDS ORDERED: Morphine 4 MG/ML VIAL ONE (19:29)
[2019-02-07] MEDS ORDERED: Iohexol 350mg/ml 100 ML ONE (20:17)
--- NOTE | 2019-02-07 20:39 | C.PDOC ---
History Of Present Illness 63 year old female presents to the ED accompanied by her Family for evaluation of LLQ abdominal pain for the past 1 day. Patient states her pain is radiating towards her RLQ. Patient has previous history of cholecystitis. Patient denies fever, chills, nausea, vomit, diarrhea, rash, dysuria, hematuria, back pain. Time Seen by Provider: 02/07/19 18:36 Chief Complaint (Nursing): Abdominal Pain History Per: Patient History/Exam Limitations: no limitations Onset/Duration Of Symptoms: Days (1) Current Symptoms Are (Timing): Still Present Location Of Pain/Discomfort: LLQ Quality Of Discomfort: "Pain" Associated Symptoms: denies: Nausea, Vomiting, Diarrhea, Urinary Symptoms Recent travel outside of the [place]: No Additional History Per: Patient Abnormal Vaginal Bleeding: No Past Medical History Reviewed: Historical Data, Nursing Documentation, Vital Signs Vital Signs: Last Vital Signs Temp 98.2 F 02/07/19 20:04 Pulse 63 02/07/19 20:04 Resp 20 02/07/19 20:04 BP 143/55 L 02/07/19 20:04 Pulse Ox 98 02/07/19 20:04 - Medical History PMH: HTN, Hypercholesterolemia, Seizures Denies: Chronic Kidney Disease Surgical History: Cholecystectomy - [facility] Procedures CRANIAL OSTEOPLASTY NEC (03/31/14) NON-INVASIVE MECHANICAL VENTILATION (03/31/14) OTHER BRAIN INCISION (03/31/14) OTHER CRANIOTOMY (03/31/14) PERCUTANEOUS [ENDOSCOPIC] GASTROSTOMY [PEG] (03/31/14) VACCINATION NEC (03/31/14) Family History: States: Unknown Family Hx - Social History Hx Tobacco Use: No Hx Alcohol Use: No Hx Substance Use: No - Immunization History Hx Tetanus Toxoid Vaccination: Yes Hx Influenza Vaccination: Yes (2018) Hx Pneumococcal Vaccination: No Review Of Systems Constitutional: Negative for: Fever, Chills Cardiovascular: Negative for: Chest Pain, Palpitations Respiratory: Negative for: Shortness of Breath Gastrointestinal: Positive for: Abdominal Pain. Negative for: Nausea, Vomiting, Diarrhea Skin: Negative for: Rash Neurological: Negative for: Weakness, Numbness, Headache Physical Exam - Physical Exam Appears: Non-toxic, No Acute Distress Skin: Normal Color, Warm, Dry Head: Atraumatic, Normacephalic Eye(s): bilateral: Normal Inspection Oral Mucosa: Moist Neck: Normal ROM, Supple Chest: Symmetrical Cardiovascular: Rhythm Regular Respiratory: Normal Breath Sounds, No Rales, No Rhonchi, No Wheezing Gastrointestinal/Abdominal: Soft, Tenderness (Lower abdomen, LLQ > RLQ), No Guarding, No Rebound Back: No CVA Tenderness Extremity: Normal ROM, No Tenderness, No Swelling Neurological/Psych: Oriented x3, Normal Speech, Normal Cognition Gait: Steady ED Course And Treatment - Laboratory Results Result Diagrams: 02/07/19 18:58 02/07/19 18:58 Lab Results: Troponin I < 0.0120 ng/mL (0.00-0.120) 02/07/19 18:58 Total Bilirubin 0.3 mg/dL (0.2-1.3) 02/07/19 18:58 AST 30 U/L (14-36) 02/07/19 18:58 ALT 25 U/L (9-52) 02/07/19 18:58 Alkaline Phosphatase 116 U/L (38-126) 02/07/19 18:58 Total Protein 7.4 g/dL (6.3-8.3) 02/07/19 18:58 Albumin 4.3 g/dL (3.5-5.0) 02/07/19 18:58 Globulin 3.1 gm/dL (2.2-3.9) 02/07/19 18:58 Albumin/Globulin Ratio 1.4 (1.0-2.1) 02/07/19 18:58 Lipase 32 U/L (23-300) 02/07/19 18:58 Urine Color Yellow (YELLOW) 02/07/19 18:58 Urine Clarity Hazy (Clear) 02/07/19 18:58 Urine pH 6.0 (5.0-8.0) 02/07/19 18:58 Ur Specific [place] 1.015 (1.003-1.030) 02/07/19 18:58 Urine Protein Negative mg/dL (NEGATIVE) 02/07/19 18:58 Urine Glucose (UA) Normal mg/dL (Normal) 02/07/19 18:58 Urine Ketones Negative mg/dL (NEGATIVE) 02/07/19 18:58 Urine Blood Negative (NEGATIVE) 02/07/19 18:58 Urine Nitrate Negative (NEGATIVE) 02/07/19 18:58 Urine Bilirubin Negative (NEGATIVE) 02/07/19 18:58 Urine Urobilinogen Normal mg/dL (0.2-1.0) 02/07/19 18:58 Ur Leukocyte Esterase Trace Carlos/uL (Negative) 02/07/19 18:58 Urine WBC (Auto) 3 /hpf (0-5) 02/07/19 18:58 Urine RBC (Auto) 1 /hpf (0-3) 02/07/19 18:58 Ur Squamous Epith Cells 12 /hpf (0-5) H 02/07/19 18:58 Urine Bacteria Occ (<OCC) H 02/07/19 18:58 ECG: Interpreted By Me, Viewed By Me ECG Rhythm: Sinus Rhythm Interpretation Of ECG: Normal intervals, normal axis, difuse T wave flatening Rate From EC (BPM) O2 Sat by Pulse Oximetry: 98 (ON RA) Pulse Ox Interpretation: Normal - CT Scan/US CT abd/pelvis Other Rad Studies (CT/US): Read By Radiologist, Radiology Report Reviewed CT/US Interpretation: EXAM: CT Abdomen and Pelvis with IV contrast. CLINICAL HISTORY: Abd pain. TECHNIQUE: Axial computed tomography images of the abdomen and pelvis with intravenous contrast. 0.00 mGy-cm. CONTRAST: With; 100MLS OMNI 350. COMPARISON: None provided. FINDINGS: LUNG BASES: The lung bases appear clear. No pleural effusions are seen. LIVER: An approximately 2.0 x 2.0 cm hypodense lesion with partial peripheral enhancement noted in the central right hepatic lobe. A 1.0 cm hypodense on is seen in the posterior right hepatic lobe. 1.5 hypoenhancing lesion is noted at the hepatic dome. GALLBLADDER AND BILE DUCTS: Status post cholecystectomy. No biliary ductal dilatation is evident. PANCREAS: Unremarkable. SPLEEN: Unremarkable. ADRENAL GLANDS: Unremarkable. KIDNEYS, URETERS, AND BLADDER: The kidneys appear within normal limits. A tiny 8.2 mm cyst is seen in the upper lateral right renal pole. There is no hydronephrosis or hydroureter. No urinary calculi are seen. The urinary bladder appeared normal in size and configuration. STOMACH AND BOWEL: U nremarkable appearance of the stomach. No evidence of bowel obstruction. No evidence of enteritis or colitis. APPENDIX: Appendiceal mucosal wall thickening is noted with fluid distention of the appendix measuring up to 1.2 cm transversely. Subtle periappendiceal haziness is noted. These findings are compatible with acute appendicitis. PERITONEUM: No free fluid. No free air. LYMPH NODES: No lymphadenopathy is evident. REPRODUCTIVE: Unremarkable as visualized. VASCULATURE: No evidence of abdominal aortic aneurysm. Minor atherosclerotic vascular plaquing is noted. BONES: No aggressive appearing osseous lesion. No acute osseous pathology evident. IMPRESSION: 1. Evidence of acute appendicitis. No abscess or rupture. 2. Hepatic lesions as above most compatible with hemangiomas, however further evaluation with CT or MRI, 3 phase hepatic protocol is recommended. 3. Status post cholecystectomy. . Electronically signed on Feb 07, 2019 9:28:52 PM EDT by: Sarmad Blakely M.D., MBA Certified By ABR & CBCCT. Fellowship Trained MRI and CT Specialist Medical Decision Making Medical Decision Making: Assessment: Abdominal pain Plan: * CT abd/pelvis * EKG * Labs * Morphine 4 mg IVP * Pepcid 20 mg IVP * Zofran 4 mg IVP * UA Disposition Discussed With Dr.: Garrett Massey Doctor Will See Patient In The: Hospital Counseled Patient/Family Regarding: Studies Performed, Diagnosis - Disposition Disposition: HOSPITALIZED Disposition Time: 22:00 Condition: FAIR Forms: [facility] [employer] ([place]) - Clinical Impression Clinical Impression: Appendicitis - Scribe Statement The provider has reviewed the documentation as recorded by the Scribe Daniel Dewitt All medical record entries made by the Scribe were at my direction and personally dictated by me. I have reviewed the chart and agree that the record accurately reflects my personal performance of the history, physical exam, medical decision making, and the department course for this patient. I have also personally directed, reviewed, and agree with the discharge instructions and disposition.
[2019-02-07] MEDS ORDERED: Piperacillin/Tazobact 3.375 GM in Sodium Chloride 100 ML IVPB STA (21:31)
[2019-02-07] MEDS ORDERED: Piperacillin/Tazobact 3.375 gm 100 ML IVPB ONE (21:40)
[2019-02-07] MEDS ORDERED: Lactated Ringer's 1,000 ML IV SCH (23:15)
[2019-02-07] MEDS: Piperacill/Tazo 3.375gm in Dex 3.375 GM/50 ML BAG IVPB SCH (23:35)
--- NOTE | 2019-02-07 23:39 | CP.PCM.HP ---
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 Pt brought to ED today by family members as pt has been complaining of abdominal pain since early this morning. Pt reports pain was initially LLQ and periumbilical but has more located in RLQ over past 2 hours. She denies any associated emesis, fevers, chills, sob or chest pain. She does admit to persistent nausea since onset of symptoms. Of note, pt reports all medications have been taken today, including anti- seizure medications PMH: HTN, HLD, Seizures PSH: Cholecystectomy, Craniotomy Present on Admission - Present on Admission Any Indicators Present on Admission: No History of DVT/PE: No History of Uncontrolled Diabetes: No Urinary Catheter: No Decubitus Ulcer Present: No Review of Systems - Review of Systems All systems: reviewed and no additional remarkable complaints except (as per hpi) Past Patient History - Infectious Disease Hx of Infectious Diseases: None - Past Medical History & Family History Past Medical History?: Yes - Past Social History Smoking Status: Never Smoked - CARDIAC Hx Hypercholesterolemia: Yes Hx Hypertension: Yes - NEUROLOGICAL Hx Seizures: Yes - HEENT Other/Comment: wears glasses - RENAL Hx Chronic Kidney Disease: No - ENDOCRINE/METABOLIC Hx Endocrine Disorders: No - HEMATOLOGICAL/ONCOLOGICAL Hx Blood Disorders: No - INTEGUMENTARY Hx Dermatological Problems: No - MUSCULOSKELETAL/RHEUMATOLOGICAL Hx Falls: Yes - GASTROINTESTINAL Hx Nausea: Yes Hx Vomiting: Yes - GENITOURINARY/GYNECOLOGICAL Hx Genitourinary Disorders: No - PSYCHIATRIC Hx Substance Use: No - SURGICAL HISTORY Hx Cholecystectomy: Yes - ANESTHESIA Hx Anesthesia: Yes Hx Anesthesia Reactions: No Meds Allergies/Adverse Reactions: Allergies Allergy/AdvReac Type Severity Reaction Status Date / Time No Known Allergies Allergy Verified 02/07/19 16:45 Physical Exam - Constitutional Appears: Non-toxic, No Acute Distress - ENT Exam ENT Exam: Normal Exam - Respiratory Exam Respiratory Exam: absent: Accessory Muscle Use, Respiratory Distress - Cardiovascular Exam Cardiovascular Exam: REGULAR RHYTHM - GI/Abdominal Exam GI & Abdominal Exam: Guarding, Rebound, Soft, Tenderness (RLQ ). absent: Distended, Firm Additional comments: + Rovsings + Rebound - Extremities Exam Extremities exam: Negative for: pedal edema - Neurological Exam Neurological exam: Alert, Oriented x3 - Psychiatric Exam Psychiatric exam: Normal Affect, Normal Mood - Skin Skin Exam: Normal Color, Warm Results - Vital Signs Recent Vital Signs: Last Vital Signs Temp 98.1 F 02/07/19 23:29 Pulse 78 02/07/19 23:29 Resp 17 02/07/19 23:29 BP 123/78 02/07/19 23:29 Pulse Ox 97 02/07/19 23:29 - Labs Result Diagrams: 02/07/19 18:58 02/07/19 18:58 Labs: Laboratory Results - last 24 hr 02/07/19 02/07/19 02/07/19 18:58 18:58 18:58 WBC 13.2 H D RBC 4.46 Hgb 13.4 Hct 40.8 MCV 91.3 MCH 30.1 MCHC 32.9 L RDW 13.3 Plt Count 209 MPV 9.8 Neut % (Auto) 80.7 H Lymph % (Auto) 14.8 L [place] % (Auto) 3.9 Eos % (Auto) 0.2 Baso % (Auto) 0.4 Neut # (Auto) 10.7 H Lymph # (Auto) 2.0 [place] # (Auto) 0.5 Eos # (Auto) 0.0 Baso # (Auto) 0.1 Sodium 138 Potassium 3.9 Chloride 103 Carbon Dioxide 25 Anion Gap 14 BUN 10 Creatinine 0.5 L Est GFR ( Amer) > 60 Est GFR (Non-Af Amer) > 60 Random Glucose 102 Calcium 9.3 Total Bilirubin 0.3 AST 30 ALT 25 Alkaline Phosphatase 116 Troponin I < 0.0120 Total Protein 7.4 Albumin 4.3 Globulin 3.1 Albumin/Globulin Ratio 1.4 Lipase 32 Urine Color Yellow Urine Clarity Hazy Urine pH 6.0 Ur Specific [place] 1.015 Urine Protein Negative Urine Glucose (UA) Normal Urine Ketones Negative Urine Blood Negative Urine Nitrate Negative Urine Bilirubin Negative Urine Urobilinogen Normal Ur Leukocyte Esterase Trace Urine WBC (Auto) 3 Urine RBC (Auto) 1 Ur Squamous Epith Cells 12 H Urine Bacteria Occ H Phenytoin Blood Type Antibody Screen 02/07/19 02/07/19 22:23 22:23 WBC RBC Hgb Hct MCV MCH MCHC RDW Plt Count MPV Neut % (Auto) Lymph % (Auto) [place] % (Auto) Eos % (Auto) Baso % (Auto) Neut # (Auto) Lymph # (Auto) [place] # (Auto) Eos # (Auto) Baso # (Auto) Sodium Potassium Chloride Carbon Dioxide Anion Gap BUN Creatinine Est GFR ( Amer) Est GFR (Non-Af Amer) Random Glucose Calcium Total Bilirubin AST ALT Alkaline Phosphatase Troponin I Total Protein Albumin Globulin Albumin/Globulin Ratio Lipase Urine Color Urine Clarity Urine pH Ur Specific [place] Urine Protein Urine Glucose (UA) Urine Ketones Urine Blood Urine Nitrate Urine Bilirubin Urine Urobilinogen Ur Leukocyte Esterase Urine WBC (Auto) Urine RBC (Auto) Ur Squamous Epith Cells Urine Bacteria Phenytoin 15.6 Blood Type O POSITIVE Antibody Screen Negative Assessment & Plan - Assessment and Plan (Free Text) Assessment: 63F with appendicitis Plan: admit Zosyn IVF given clinical presentation pt would benefit from emergent appendectomy plan for OR this evening d/w Dr Bryson Ignacio, PGY4
[2019-02-07] MEDS ORDERED: Midazolam 2 MG/2 ML VIAL ONE (23:53)
[2019-02-07] MEDS ORDERED: Propofol 10 mg/ml Inj (20 ML) ONE (23:53)
[2019-02-07] MEDS ORDERED: Rocuronium 10 mg/ml (5 ml) ONE (23:56)
[2019-02-07] MEDS ORDERED: Succinylcholine Chloride 20 mg/ml Syr (5 ml) IV ONE (23:56)
[2019-02-08] MEDS ORDERED: HYDROmorphone 0.5 mg/0.5 ml ISec IVP PRN (00:27)
[2019-02-08] MEDS ORDERED: Neostigmine 1:1000 (1 mg/ml) Inj ONE (00:36)
--- NOTE | 2019-02-08 00:59 | PCM.SURG1 ---
Surgeon's Initial Post Op Note - Surgeon's Notes Surgeon: Dr Massey Electrician Ship: Dr Ignacio PGY4 Type of Anesthesia: General Endo Anesthesia Administered By: Dr Otero Pre-Operative Diagnosis: Acute Appendicitis Operative Findings: as above Post-Operative Diagnosis: as above Operation Performed: Laparoscopic appendectomy Specimen/Specimens Removed: appendix Estimated Blood Loss: EBL {In ML}: 5 Blood Products Given: N/A Drains Used: No Drains Post-Op Condition: Good Date of Surgery/Procedure: 02/08/19 Time of Surgery/Procedure: 00:59
[2019-02-08 02:39] VITALS: RESP 18; O2SAT 95
[2019-02-08] MEDS: Piperacill/Tazo 3.375gm in Dex 3.375 GM/50 ML BAG IVPB SCH ×2 (05:39→12:24)
[2019-02-08] MEDS ORDERED: Levothyroxine 50 MCG TAB PO SCH (06:30)
--- NOTE | 2019-02-08 06:41 | CT ---
CT abdomen and pelvis HISTORY: Abdominal pain. COMPARISON: None available. TECHNIQUE: Multiple contiguous axial images were performed through the abdomen and pelvis with the use of intravenous contrast. Subsequently, sagittal and coronal reformatted images were obtained. This CT exam was performed using one or more of the following dose reduction techniques: Automated exposure control, adjustment of the mA and/or kV according to patient size, and/or use of iterative reconstruction technique. Findings: Scattered atelectasis and consolidation seen within the visualized lung carlos. Focal pericardial thickening along the anterior pericardium as demonstrated on series 3, image 23. Intrahepatic biliary ductal dilatation. Somewhat ill-defined low-attenuation lesion measuring 1.7 centimeters in the right hepatic lobe demonstrating a Hounsfield unit attenuation of 65, indeterminate. Additional subcentimeter 9 millimeter hypodensity at the periphery of the right hepatic lobe. More inferiorly there is an additional 2.1 centimeter low-attenuation lesion seen within the medial inferior aspect of the right hepatic lobe demonstrating a Hounsfield unit attenuation of 35, indeterminate. Correlation with multiphasic contrast enhanced CT or MR is recommended to better evaluate these lesions. Some focal fatty infiltration adjacent to the ligamentum teres. Surgical clips at the level of the gallbladder fossa. Postsurgical dilatation of the common bile. Spleen is diminutive but otherwise preserved. Adrenal glands are preserved. Pancreas is preserved. Small hiatal hernia. Right kidney: 5 millimeter rounded low-attenuation foci in the upper pole of the right kidney, too small to adequately characterize. No calculi or hydronephrosis. Left Kidney: No calculi or hydronephrosis. Urinary bladder is preserved. Heterogeneous uterus and bilateral adnexa. Underdistended descending and sigmoid colons. Fecal retention in the remainder of the colon. Thickened and enhancing appendix measuring up to 1.1 centimeters suggestive for acute appendicitis. Atherosclerotic calcification and plaque in the aorta. Shotty para-aortic and inguinal lymph nodes. Shotty mesenteric lymph nodes. Degenerative changes in the spine. Sclerosis of the bilateral SI joints. Impression: 1. Findings concerning for acute appendicitis. Clinical correlation. 2. Indeterminate liver lesions as described above. Correlation with multiphasic contrast enhanced CT or MR is recommended for further evaluation if clinically indicated. Additional findings as above. A preliminary report was generated at 9:28 p.m. on 02/07/[address] Sarmad Blakely from [facility]
--- NOTE | 2019-02-08 08:04 | CP.PCM.DIS ---
Provider - Provider Date of Admission: 02/07/19 21:59 Attending physician: Garrett Massey MD Time Spent in preparation of Discharge (in minutes): 40 Hospital Course - Lab Results Lab Results: Most Recent Lab Values WBC 13.2 K/uL (4.8-10.8) H D 02/07/19 18:58 RBC 4.46 Mil/uL (3.80-5.20) 02/07/19 18:58 Hgb 13.4 g/dL (11.0-16.0) 02/07/19 18:58 Hct 40.8 % (34.0-47.0) 02/07/19 18:58 MCV 91.3 fL (81.0-99.0) 02/07/19 18:58 MCH 30.1 pg (27.0-31.0) 02/07/19 18:58 MCHC 32.9 g/dL (33.0-37.0) L 02/07/19 18:58 RDW 13.3 % (11.5-14.5) 02/07/19 18:58 Plt Count 209 K/uL (130-400) 02/07/19 18:58 MPV 9.8 fL (7.2-11.7) 02/07/19 18:58 Neut % (Auto) 80.7 % (50.0-75.0) H 02/07/19 18:58 Lymph % (Auto) 14.8 % (20.0-40.0) L 02/07/19 18:58 [place] % (Auto) 3.9 % (0.0-10.0) 02/07/19 18:58 Eos % (Auto) 0.2 % (0.0-4.0) 02/07/19 18:58 Baso % (Auto) 0.4 % (0.0-2.0) 02/07/19 18:58 Neut # (Auto) 10.7 K/uL (1.8-7.0) H 02/07/19 18:58 Lymph # (Auto) 2.0 K/uL (1.0-4.3) 02/07/19 18:58 [place] # (Auto) 0.5 K/uL (0.0-0.8) 02/07/19 18:58 Eos # (Auto) 0.0 K/uL (0.0-0.7) 02/07/19 18:58 Baso # (Auto) 0.1 K/uL (0.0-0.2) 02/07/19 18:58 Sodium 138 mmol/L (132-148) 02/07/19 18:58 Potassium 3.9 mmol/L (3.6-5.2) 02/07/19 18:58 Chloride 103 mmol/L (98-107) 02/07/19 18:58 Carbon Dioxide 25 mmol/L (22-30) 02/07/19 18:58 Anion Gap 14 (10-20) 02/07/19 18:58 BUN 10 mg/dL (7-17) 02/07/19 18:58 Creatinine 0.5 mg/dL (0.7-1.2) L 02/07/19 18:58 Est GFR ( Amer) > 60 02/07/19 18:58 Est GFR (Non-Af Amer) > 60 02/07/19 18:58 Random Glucose 102 mg/dL (65-105) 02/07/19 18:58 Calcium 9.3 mg/dl (8.6-10.4) 02/07/19 18:58 Total Bilirubin 0.3 mg/dL (0.2-1.3) 02/07/19 18:58 AST 30 U/L (14-36) 02/07/19 18:58 ALT 25 U/L (9-52) 02/07/19 18:58 Alkaline Phosphatase 116 U/L (38-126) 02/07/19 18:58 Troponin I < 0.0120 ng/mL (0.00-0.120) 02/07/19 18:58 Total Protein 7.4 g/dL (6.3-8.3) 02/07/19 18:58 Albumin 4.3 g/dL (3.5-5.0) 02/07/19 18:58 Globulin 3.1 gm/dL (2.2-3.9) 02/07/19 18:58 Albumin/Globulin Ratio 1.4 (1.0-2.1) 02/07/19 18:58 Lipase 32 U/L (23-300) 02/07/19 18:58 Urine Color Yellow (YELLOW) 02/07/19 18:58 Urine Clarity Hazy (Clear) 02/07/19 18:58 Urine pH 6.0 (5.0-8.0) 02/07/19 18:58 Ur Specific [place] 1.015 (1.003-1.030) 02/07/19 18:58 Urine Protein Negative mg/dL (NEGATIVE) 02/07/19 18:58 Urine Glucose (UA) Normal mg/dL (Normal) 02/07/19 18:58 Urine Ketones Negative mg/dL (NEGATIVE) 02/07/19 18:58 Urine Blood Negative (NEGATIVE) 02/07/19 18:58 Urine Nitrate Negative (NEGATIVE) 02/07/19 18:58 Urine Bilirubin Negative (NEGATIVE) 02/07/19 18:58 Urine Urobilinogen Normal mg/dL (0.2-1.0) 02/07/19 18:58 Ur Leukocyte Esterase Trace Carlos/uL (Negative) 02/07/19 18:58 Urine WBC (Auto) 3 /hpf (0-5) 02/07/19 18:58 Urine RBC (Auto) 1 /hpf (0-3) 02/07/19 18:58 Ur Squamous Epith Cells 12 /hpf (0-5) H 02/07/19 18:58 Urine Bacteria Occ (<OCC) H 02/07/19 18:58 Phenytoin 15.6 ug/mL (10-20) 02/07/19 22:23 Blood Type O POSITIVE 02/07/19 22:23 Antibody Screen Negative 02/07/19 22:23 - Hospital Course Hospital Course: 63F presented to ER with abdominal pain found to be acute appendicitis on imaging. Patient went to the OR for laparoscopic appendectomy same day. She is doing well this AM, with no tenderness, no nausea or vomiting. Will have a diet this morning and discharge home with prescriptions. Discharge Exam - Head Exam Head Exam: ATRAUMATIC - Respiratory Exam Respiratory Exam: Clear to PA & Lateral, NORMAL BREATHING PATTERN - Cardiovascular Exam Cardiovascular Exam: REGULAR RHYTHM, +S1, +S2 - GI/Abdominal Exam GI & Abdominal Exam: Soft. absent: Distended, Firm, Guarding, Rebound, Rigid, Tenderness Additional comments: incisions CDI - Neurological Exam Neurological exam: Alert, Oriented x3 - Skin Skin Exam: Dry, Intact, Normal Color, Warm Discharge Plan - Discharge Medications Prescriptions: Docusate Sodium [Colace] 100 mg PO DAILY #30 capsule oxyCODONE/Acetaminophen [Percocet 5/325 mg Tab] 1 ea PO Q6H PRN #10 tab PRN Reason: Pain, Severe (8-10) - Follow Up Plan Condition: FAIR Disposition: HOME/ ROUTINE Instructions: Appendectomy, Laparoscopic Surgery (DC) Additional Instructions: 1) Please follow up with Dr. Massey outpatient 2) May shower but do not bath 3) Continue home diet as usual 4) Take prescriptions as directed 5)Recommend no heavy lifting of more than 10-20lb for 4 weeks Referrals: Garrett Massey MD [Staff Provider] -
[2019-02-08 08:13] VITALS: BP 100/59; PULSE 47; TEMP 97.4
[2019-02-08] MEDS ORDERED: Pneumococcal 23-Valent Vaccine IM ONE (10:00)
--- NOTE | 2019-02-10 08:03 | OP ---
PROCEDURE DATE: 02/07/2019 PREOPERATIVE DIAGNOSIS: Acute appendicitis. POSTOPERATIVE DIAGNOSIS: Acute appendicitis. PROCEDURE: Laparoscopic appendectomy. SURGEON: Garrett Massey MD DESCRIPTION OF PROCEDURE: Ms. Colon is a 63-year-old female who came in with approximately 24 hours of periumbilical pain, which migrated to the right lower quadrant, presented to the ED, found to have leukocytosis of 14,000, sent for a CAT scan, which showed acute appendicitis in the right lower quadrant, so the patient was taken to the operating room for a laparoscopic appendectomy. The patient was placed on the table in a supine fashion, and after the induction of general anesthesia and endotracheal intubation, the patient was prepped and draped in the usual sterile fashion. Surgical safety time-out check list was then performed confirming appropriate patient, appropriate operation as well as the fact that preoperative antibiotics had been given. Venodyne boots were in place. A small 1 cm incision was made below the umbilicus, and through this incision, the Veress needle was inserted through the fascia, through the peritoneum into the peritoneal cavity. Placement was confirmed with saline drop test. At this point, air insufflation was hooked to the Veress needle. Opening pressure was 2 mmHg. We had a steady flow rate. The patient tolerated insufflation well. Once the abdomen was insufflated to mean pressure of 13 mmHg, bladed 12-mm trocar was placed in the subumbilical port. At this point, the camera was then introduced. The underlying bowel beneath the insertion site was inspected for injury that could have occurred upon insertion, which there was none. We then turned our attention to placing our other two ports. A 12-mm bladed port was placed in the left lower quadrant, and approximately 5 cm superior to that, we placed a 5-mm bladed port, both of these were done under visualization. Graspers were then inserted. The patient was rotated to the left to expose the right lower quadrant. The cecum was gently lifted up and the appendix was noted inflamed and injected coming off at the end of the cecum. This was grasped with a grasper and put under tension. An attempt was made to make the appropriate window with the [place] dissector, but given the degree of inflammation to the area, this proved difficult, so the decision was made to open the laparoscopic LigaSure. The LigaSure was then used to take down the mesoappendix with good hemostasis. After the mesoappendix had been removed down to the base of the appendix, we had a clear window to use the laparoscopic MILDRED to stable up the appendix. This was done with the white load stapler. Staple line was clean, dry, and intact. There was adequate hemostasis. No sign of leak. The appendix was then placed in a bag and removed out through the left lower quadrant port. The abdomen was then re-examined. There was no further evidence of any other pathology. No evidence of bleeding. There was a minor bit of fluid in the pelvis, this was removed with suction. The area was locally irrigated with minimal irrigation and then this was sucked out as well. The abdomen was then allowed to be de-insufflated; and then under direct vision, the fascia of the umbilical port was closed using a 2-0 Vicryl UR-6 [id number] suture. After this was closed, the same procedure was carried out on the left lower quadrant as well. All skin incisions were then closed with 4-0 Monocryl. The abdomen was then cleaned, dried off, and the incisions were dressed with sterile Steri-Strips and Island dressings. The patient was subsequently extubated. She tolerated the operation well, transferred to PACU in stable condition. Estimated blood loss was approximately 5 mL. Juan Ignacio DO Garrett Massey MD
== END 2019-02-08 13:24 | disposition home or self-care (01) | DRG 343 ==
LOC: C.ER 16:37 → C.9E 21:59 → C.6T 22:46
PROVIDERS: ADMIT Specialist; ATTEND Specialist
PROC: 0DTJ4ZZ Resection of Appendix, Percutaneous Endoscopic Approach (ICD-10-PCS; principal; 2019-02-07 23:45)
DX: K35.80 Unspecified acute appendicitis (principal); I10 Essential (primary) hypertension; E78.00 Pure hypercholesterolemia, unspecified; D18.09 Hemangioma of other sites